=== PATIENT | female | born 1995 | race Caucasian/White ===

== ENCOUNTER 2017-05-18 19:59 | Emergency (ER) | payer BC ==
[~2017-05-18] VITALS: Ht 162.6 cm; Wt 73.1 kg
[2017-05-18 20:11] VITALS: TEMP 36.8; Ht 162.6 cm; Wt 73.1 kg
--- NOTE | 2017-05-18 21:01 | EMERGENCY ROOM VISIT NOTE ---
History First contact with patient: 20:15 Chief Complaint: RESPIRATORY PROBLEMS Stated Complaint: COUGHING,WHEEZING,RATTLING IN CHEST,SOB Nursing Triage Summary: Cold symptoms and cough for last 3 days. Reports coughing up thick, clear mucus. Denies fever or chills. Some shortness of breath when trying to sleep. Denies chest pain. History of Present Illness The patient is a 22 year old female who presents to the Emergency Room via private vehicle accompanied by mother "coughing, wheezing, rattling in chest, shortness of breath". The patient states that this past she felt sick , drained and with body aches. She states and a cough developed and is productive of phlegm and mucus. She states that she has shortness of breath when she lies flat because of the rattling sensation in her chest and the coughing. The first day she had fevers and chills but does have stopped. She feels congested and it persists. She denies any medical problems, history of blood clots, chest pain, leg swelling, recent long travel, hemoptysis. Review of Systems A complete 10-point Review of Systems was discussed with the patient, with pertinent positives and negatives listed in the History of Present Illness. All remaining Review of Systems questions can be considered negative unless otherwise specified. Past Medical/Surgical History No pertinent Family History No pertinent Social History Smoking Status: Never Smoker Patient lives locally with family. Current/Historical Medications Scheduled Azithromycin (Zithromax 200MG/5ML), 6.25 ML PO DIRECTED Physical Exam Vital Signs Date Time Temp Pulse Resp B/P (MAP) Pulse Ox O2 Delivery O2 Flow Rate FiO2 05/18/17 21:39 88 125/75 97 05/18/17 20:11 36.8 61 20 130/80 99 Room Air Physical Exam VITAL SIGNS - Vital signs and nursing notes were reviewed. Stable. Afebrile. Not tachycardic. GENERAL -22-year-old female appearing her stated age who is in no acute distress. Communicates well with provider and answers questions appropriately. SKIN - Without rashes. HEAD - NC/AT. EYES - PERRL with EOMI bilaterally. Sclera anicteric. EARS - No deformities of external structures noted on gross examination bilaterally. External auditory canals without discharge or otorrhea. Tympanic membranes pearly dupree without retraction or bulging. No fluid or purulent material visualized behind the TM. Handle of malleus, umbo, cone of light, pars tensa/flaccid all easily visualized. NOSE - Midline and without cyanosis. No epistaxis or purulent drainage noted. MOUTH/OROPHARYNX - Without perioral cyanosis. Buccal mucosa pink and moist and without leukoplakia. Tongue midline with equal elevation of palate bilaterally. No tonsillar hypertrophy, erythema, or exudates noted. [] dentition noted. NECK - Neck with FROM. Supple to palpation. No lymphadenopathy noted. No nuchal rigidity. LUNGS - Chest wall symmetric without accessory muscle use, intercostals retractions, or central cyanosis. Normal vesicular breath sounds CTA B/L. No wheezes, rales, or rhonchi appreciated. CARDIAC - RRR with S1/S2. No murmur, rubs, or gallops appreciated. EXTREMITIES - No clubbing or peripheral cyanosis. No pretibial edema present. PSYCH - Pt is very pleasant and interacts well with examiner. Medical Decision & Procedures ER Provider Diagnostic Interpretation: CHEST 2 VIEWS ROUTINE CLINICAL HISTORY: productive cough, dyspnea with supine positioning at night COMPARISON STUDY: No previous studies for comparison. FINDINGS: The cardiac and mediastinal contours are normal. There is no evidence of focal pulmonary consolidation. There is no evidence of failure. No pleural effusions are visualized.[ IMPRESSION: No active disease in the chest. Electronically signed by: Ruben Matute M.D. 05/18/2017 8:57 PM Dictated Date/Time: 05/18/2017 8:57 PM Medications Administered Medications (Trade) Dose Ordered Sig/Ana Route Start Time Stop Time Status Last Admin Dose Admin Hydrocodone Bit/ Homatropine Methylb (Hycodan Elix Homepack 5/1.5MG/ 5ML) 1 homepack UD STAT PO 05/18/17 21:15 05/18/17 21:16 DC 05/18/17 21:29 1 HOMEPACK Albuterol (Ventolin Hfa Inhaler) 2 puffs ONE STAT INH 05/18/17 21:15 05/18/17 21:16 DC 05/18/17 21:29 2 PUFFS Medical Decision Patient was seen and evaluated as above in room B2. She presents to us today with coughing, wheezing, rattling sensation in the chest and productive mucus. Review was performed of nursing notes and vital signs. After obtaining a thorough history and physical examination the above work up was performed. She is nontoxic on exam. No evidence of IA or PE. I suspect this is likely viral in nature. Chest x-ray negative. She will be treated with cough syrup, as well as an inhaler. If persistent she is to initiate azithromycin. She notes she does not have a family doctor but will acquire one. She respectfully declines help in obtaining one. She is to return with worsening. This is likely a viral URI. However given the amount of days that have been with persistent cough and congestion will provide the antibiotic in the event this could turn to bacterial. The patient was educated upon management, had questions answered prior to discharge, and was discharged home in good condition. In the evaluation and treatment of this patient the following differential diagnoses were entertained: viral URI, pneumonia, bronchitis, sinusitis, Strep pharyngitis, mononucleosis, IA, PE, among others. Impression Primary Impression: Viral URI with cough Departure Information Dispostion Home / Self-Care Condition GOOD Prescriptions Azithromycin (ZITHROMAX 200MG/5ML) 200 Mg/5 Ml Bibiana 6.25 ML PO DIRECTED for 5 Days, #37.5 ML 12.5mL on day one, then 6.25mL daily for days 2-5. Prov: Jim Banks, VINEET 05/18/17 Patient Instructions [facility] Additional Instructions You were seen in the emergency department for your cough, wheezing, rattling in the chest and productive cough. At this time the xray does not show any pneumonia or concerning findings. I suspect you are likely experiencing a viral upper respiratory tract infection like bronchitis. Albuterol inhaler 1 puff every 6 hours as needed for your cough and congestion. This will help move more air and cough the congestion out. Hycodan cough syrup as needed. Azithromycin after sick for 7-10 days in the event of a bacterial infection. Please return with any new/concerning symptoms.
[2017-05-18] MEDS ORDERED: AZIT200S49 PO (21:14)
[2017-05-18] MEDS ORDERED: HYCODAN 60ML BOTTLE HOMEPACK PO STA (21:15)
[2017-05-18] MEDS ORDERED: ALBUTEROL HFA 8 GM INHALER INH STA (21:15)
[2017-05-18 21:39] VITALS: BP 125/75; PULSE 88; O2SAT 97
== END 2017-05-18 21:41 | disposition home or self-care (01) ==
LOC: C.EDB 20:01
DX: J06.9 Acute upper respiratory infection, unspecified (principal)